=== PATIENT | male | born 2000 | race Caucasian/White ===

== ENCOUNTER 2024-04-16 21:22 | Emergency (ER) | payer BC ==
[~2024-04-16] VITALS: Ht 188 cm; Wt 140.9 kg
[2024-04-16 21:50] VITALS: TEMP 98.4
[2024-04-16] MEDS ORDERED: Amoxicillin 500 MG CAP PO ONE (22:30)
[2024-04-16] MEDS ORDERED: Ibuprofen 400 MG TAB PO ONE (22:30)
[2024-04-16] MEDS ORDERED: Acetaminophen 325 MG TAB PO ONE (22:30)
[2024-04-16] MEDS ORDERED: AMOXICILLIN 50500 MG PO (22:42)
[2024-04-16 22:55] VITALS: BP 126/76; PULSE 85
== END 2024-04-16 22:55 | disposition home or self-care (01) ==
LOC: COL.ER 21:22
DX: H74.8X1 Other specified disorders of right middle ear and mastoid (principal)